=== PATIENT | male | born 1950 | race African-American/Black ===

== ENCOUNTER 2018-06-11 13:50 | Emergency (ER) | payer MEDICAID, OTHER ==
[~2018-06-11] VITALS: Ht 172.7 cm; Wt 49.9 kg
[2018-06-11] MEDS ORDERED: ASPirin 81 mg TAB PO ONE (14:45)
[2018-06-11] MEDS ORDERED: LORazepam 0.5 MG TAB PO ONE (14:45)
[2018-06-11 14:50] LABS: Basophils # (auto) 0 uL; Basophils % (auto) 0.8 % (0.0-2.0); Eosinophils # (auto) 0.1 uL; Eosinophils % (auto) 3.5 % (0.0-7.0); Hematocrit 34.2 % (41.0-53.0); Hemoglobin 11.2 g/dL (13.5-17.5); Lymphocytes # (auto) 1.6 uL; Lymphocytes % (auto) 52.5 % (10.0-50.0); Mean Corpuscular Hemoglobin 31.6 pg (28.0-32.0); Mean Corpuscular Hgb Conc. 32.8 g/dL (32.0-36.0); Mean Corpuscular Volume 96.5 fL (80.0-100.0); Monocytes # (auto) 0.5 uL; Neutrophils # (auto) 0.8 uL; Neutrophils % (auto) 27.2 % (37.0-80.0); Nucleated Red Blood Cells % 0.8 %; Platelet Count (auto) 118 10^3/uL (140-450); Red Blood Cells 3.54 10^6/uL (4.5-5.90); Red Cell Distribution Width 13.6 % (11.8-14.3); White Blood Cell 3.1 10^3/uL (4.4-10.8)
[2018-06-11 15:07] LABS: Chloride 102 mmol/L (98-107); Sodium 134 mmol/L (136-145)
[2018-06-11 15:17] LABS: Alanine Aminotransferase 74 U/L (16-61); Albumin 2.9 g/dL (3.4-5.0); Alkaline Phosphatase 151 U/L (45-117); Anion Gap 6 (5-15); Aspartate Aminotransferase 93 U/L (15-37); BUN/Creatinine Ratio 9.6; Bilirubin, Total 1.4 mg/dL (0.2-1.0); Blood Urea Nitrogen 11 mg/dL (7-18); Calcium 8.2 mg/dL (8.5-10.1); Carbon Dioxide 26 mmol/L (21-32); GFR African American 81 mL/min; GFR Non-African American 67 mL/min; Glucose 117 mg/dL (74-106); Magnesium 1.6 mg/dL (1.6-2.6)
[2018-06-11 16:56] VITALS: BP 148/82
== END 2018-06-11 18:08 | disposition home or self-care (01) ==
LOC: EDBD 13:50 → ER 13:56
DX: R07.89 Other chest pain (principal); R06.02 Shortness of breath; I10 Essential (primary) hypertension; I25.2 Old myocardial infarction; F17.210 Nicotine dependence, cigarettes, uncomplicated; Z88.5 Allergy status to narcotic agent
CPT/HCPCS: 36415; 80053; 83735; 84484; 85025; 93005